=== PATIENT | female | born 1985 | race Caucasian/White ===

== ENCOUNTER 2017-02-19 08:53 | Inpatient (IN) | payer OTHER ==
[~2017-02-19] VITALS: Ht 154.9 cm; Wt 67.0 kg
[~2017-02-19 08:53] MED LIST: ENDOCET 5-3251 EACH PO; IBUPROFEN800 MG PO; IRON 100 PLUS1 EACH PO; ORTHO EVRA PA1 PATCH PO; PRENA1 CHEW TA1.4 MG PO
[2017-02-19 09:34] VITALS: BP 94/58
[2017-02-19 11:30] VITALS: BP 137/71
[2017-02-19 15:11] VITALS: BP 101/60
[2017-02-19 18:15] VITALS: BP 107/60
[2017-02-20 06:30] LABS: EOSINOPHIL (%) 1.1 % (0-5); EOSINOPHIL COUNT 0.1 K/uL (0-0.3); HEMATOCRIT 25.9 % (36.0-46.0); IMMATURE GRANULOCYTE (%) 0.3 % (0.0-0.7); INSTRUMENT ABS NEUTROPHIL CT 7.3 K/uL; LYMPHOCYTE COUNT 2.1 K/uL (1.0-2.8); MCH 32.1 PG (29.0-34.0); MCHC 32.8 G/DL (30.0-36.0); MCV 97.7 FL (83-99); MEAN PLAT.VOLUME 10.2 uM^3 (9.5-12.4); MONOCYTE (%) 9.4 % (3-12); NEUTROPHIL (%) 69.3 % (45-76); NEUTROPHIL COUNT 7.3 K/uL (1.8-6.4); PLATELET COUNT 168 K/uL (156-360); RBC DIS.WIDTH-CV 12.9 % (11.8-14.6); RBC DIS.WIDTH-SD 46.3 % (39-53); WHITE BLOOD COUNT 10.5 K/uL (4.1-10.2)
[2017-02-20 06:31] LABS: RED BLOOD COUNT 2.65 M/uL (3.80-5.20)
[2017-02-20 07:40] VITALS: BP 99/58
[2017-02-20 11:05] VITALS: BP 102/61
[2017-02-20 14:15] VITALS: BP 112/63
[2017-02-20 19:34] VITALS: BP 108/64
[2017-02-21 00:50] VITALS: BP 110/62
[2017-02-21 02:44] VITALS: BP 117/63
[2017-02-21 07:37] VITALS: BP 115/67
[2017-02-21 12:00] VITALS: BP 122/69
[2017-02-21 14:09] VITALS: BP 125/66
[2017-02-21 21:37] VITALS: BP 110/65
[2017-02-22 07:42] VITALS: BP 115/75
== END 2017-02-22 13:45 | disposition home or self-care (01) | DRG 765 ==
LOC: 2WEST 08:53 → 2SOUTH 10:54 → 2WEST 02-22 13:45
PROVIDERS: Obstetrics & Gynecology Gynecology
DX: O34.211 Maternal care for low transverse scar from previous cesarean delivery (principal); O99.02 Anemia complicating childbirth; D62 Acute posthemorrhagic anemia; O69.81X0 Labor and delivery complicated by cord around neck, without compression, not applicable or unspecified; O99.89 Other specified diseases and conditions complicating pregnancy, childbirth and the puerperium; N73.6 Female pelvic peritoneal adhesions (postinfective); Z30.2 Encounter for sterilization; Z3A.39 39 weeks gestation of pregnancy; Z37.0 Single live birth; Z87.891 Personal history of nicotine dependence
CPT/HCPCS: 36415; 85025; 86850; 86900; 86901; 88302; 90686; J0690; J1100; J1200; J2274; J2405; J2590; J7120